=== PATIENT | male | born 1960 | race Hispanic/Latino ===

== ENCOUNTER 2017-09-07 10:41 | Outpatient (CLI) | payer OTHER ==
--- NOTE | 2017-09-07 11:19 | XRay Report ---
Left ankle 3 views: History: Ankle pain. Findings: No bony or articular abnormality. No fracture dislocation or soft tissue calcification. Impression: Essentially negative left ankle.
== END 2017-09-07 10:42 | disposition home or self-care (01) ==
LOC: SPVIMAG 10:41
DX: M25.572 Pain in left ankle and joints of left foot (principal)